=== PATIENT | male | born 1960 | race African-American/Black ===

== ENCOUNTER 2021-12-21 11:04 | Inpatient (IN) | payer BC ==
[2021-12-21 11:53] VITALS: BMI 29.5
[2021-12-21] MEDS ORDERED: BISMUTH SUBSALICYLATE 262 MG/15 ML BTL PO PRN (12:02)
[2021-12-21] MEDS ORDERED: IBUPROFEN 400 MG TABLET (FP) PO PRN (12:02)
[2021-12-21] MEDS ORDERED: ONDANSETRON *ODT* 4 MG TABLET SL PRN (12:02)
[2021-12-21] MEDS ORDERED: MAGNESIUM CITRATE 300 ML BOTTLE PO PRN (12:02)
[2021-12-21] MEDS ORDERED: NICOTINE 10 MG CARTRIDGE (INHALER) IH PRN (12:02)
[2021-12-21] MEDS ORDERED: BENZOCAINE/MENTHOL (CHLORASEPTIC ) LOZENGE MM PRN (12:02)
[2021-12-21] MEDS ORDERED: IBUPROFEN 600 MG TABLET (FP) PO PRN (12:02)
[2021-12-21] MEDS ORDERED: ACETAMINOPHEN 325 MG TABLET (FP) PO PRN ×2 (12:02)
[2021-12-21] MEDS ORDERED: DICYCLOMINE HCL 10 MG CAPSULE PO PRN (12:02)
[2021-12-21] MEDS ORDERED: LOPERAMIDE HCL 2 MG CAPSULE PO PRN (12:02)
[2021-12-21] MEDS ORDERED: MAG HYDROX/AL HYDROX/SIMETH 30 ML UNIT-DOSE CUP PO PRN (12:02)
[2021-12-21] MEDS ORDERED: MAGNESIUM HYDROX 2400MG/30ML ORAL SUSPENSION 30 ML CUP PO PRN (12:02)
[2021-12-21] MEDS: PRENATAL VITAMINS W/ FOLIC ACID TABLET (FP) PO SCH (12:40)
[2021-12-21] MEDS: NICOTINE 14 MG/24 HOURS TOPICAL PATCH TD SCH (12:40)
[2021-12-21] MEDS: hydrOXYzine PAMOATE 25 MG CAPSULE (FP) PO SCH ×3 (13:21→23:02)
[2021-12-21] MEDS: MELATONIN 5 MG TABLETS PO SCH (23:02)
[2021-12-21] MEDS: ATORVASTATIN CA 40 MG TABLET (FP) PO SCH (23:02)
[2021-12-21] MEDS: THIAMINE HCL 100 MG TABLET (FP) PO SCH (23:02)
[2021-12-22] MEDS: hydrOXYzine PAMOATE 25 MG CAPSULE (FP) PO SCH ×5 (06:20→21:40)
[2021-12-22] MEDS ORDERED: chlordiazePOXIDE HCL 25 MG CAPSULE PO PRN (09:34)
[2021-12-22] MEDS: amLODIPine BESYLATE 10 MG TABLET (FP) PO SCH (10:08)
[2021-12-22] MEDS: PRENATAL VITAMINS W/ FOLIC ACID TABLET (FP) PO SCH (10:08)
[2021-12-22] MEDS: METHOCARBAMOL 500 MG TABLET PO PRN (10:09)
[2021-12-22] MEDS: NICOTINE 14 MG/24 HOURS TOPICAL PATCH TD SCH (10:09)
[2021-12-22] MEDS: chlordiazePOXIDE HCL 25 MG CAPSULE PO SCH ×3 (10:12→22:18)
[2021-12-22] MEDS: ATORVASTATIN CA 40 MG TABLET (FP) PO SCH (21:40)
[2021-12-22] MEDS: THIAMINE HCL 100 MG TABLET (FP) PO SCH (21:40)
[2021-12-22] MEDS: MELATONIN 5 MG TABLETS PO SCH (21:40)
[2021-12-23] MEDS: hydrOXYzine PAMOATE 25 MG CAPSULE (FP) PO SCH ×5 (06:04→23:13)
[2021-12-23] MEDS: chlordiazePOXIDE HCL 25 MG CAPSULE PO SCH ×4 (06:04→23:13)
[2021-12-23] MEDS: amLODIPine BESYLATE 10 MG TABLET (FP) PO SCH (10:19)
[2021-12-23] MEDS: PRENATAL VITAMINS W/ FOLIC ACID TABLET (FP) PO SCH (10:19)
[2021-12-23] MEDS: METHOCARBAMOL 500 MG TABLET PO PRN (10:19)
[2021-12-23] MEDS: NICOTINE 14 MG/24 HOURS TOPICAL PATCH TD SCH (10:21)
[2021-12-23 11:51] LABS: HEMATOCRIT 36.6 % (35.4-49); HEMOGLOBIN 12.4 GM/dL (11.7-16.9); MCH 29.4 pg (25.7-33.7); MCHC 33.9 g/dl (32.0-35.9); MEAN CELL VOLUME 86.6 fl (80-96); PLATELET COUNT 250 10^3/uL (134-434); RBC 4.23 M/mm3 (4.00-5.60); RDW 14.6 % (11.9-15.9); WHITE BLOOD COUNT 4.9 K/mm3 (4.0-10.0)
[2021-12-23 13:00] LABS: CALCIUM 8.9 mg/dL (8.5-10.1)
[2021-12-23 13:01] LABS: ALBUMIN 3.7 g/dl (3.4-5.0); BLOOD UREA NITROGEN 14.8 mg/dL (7-18)
[2021-12-23 13:04] LABS: CREATININE 1.1 mg/dL (0.55-1.3)
[2021-12-23 13:05] LABS: TOT PROT 6.8 g/dl (6.4-8.2)
[2021-12-23 13:06] LABS: BILIRUBIN,TOTAL 0.4 mg/dL (0.2-1)
[2021-12-23] MEDS: ATORVASTATIN CA 40 MG TABLET (FP) PO SCH (23:13)
[2021-12-23] MEDS: MELATONIN 5 MG TABLETS PO SCH (23:13)
[2021-12-23] MEDS: THIAMINE HCL 100 MG TABLET (FP) PO SCH (23:14)
[2021-12-24] MEDS: hydrOXYzine PAMOATE 25 MG CAPSULE (FP) PO SCH ×5 (06:08→22:59)
[2021-12-24] MEDS: chlordiazePOXIDE HCL 25 MG CAPSULE PO SCH ×4 (06:08→22:59)
[2021-12-24] MEDS: PRENATAL VITAMINS W/ FOLIC ACID TABLET (FP) PO SCH (10:27)
[2021-12-24] MEDS: amLODIPine BESYLATE 10 MG TABLET (FP) PO SCH (10:28)
[2021-12-24] MEDS: NICOTINE 14 MG/24 HOURS TOPICAL PATCH TD SCH (10:29)
[2021-12-24] MEDS: HYDROCORTISONE 0.5% TOPICAL CREAM 30 GM TUBE TP SCH ×2 (13:26→23:40)
[2021-12-24] MEDS: MELATONIN 5 MG TABLETS PO SCH (22:59)
[2021-12-24] MEDS: THIAMINE HCL 100 MG TABLET (FP) PO SCH (22:59)
[2021-12-24] MEDS: ATORVASTATIN CA 40 MG TABLET (FP) PO SCH (22:59)
[2021-12-25] MEDS ORDERED: chlordiazePOXIDE HCL 10 MG CAPSULE PO PRN
[2021-12-25] MEDS: hydrOXYzine PAMOATE 25 MG CAPSULE (FP) PO SCH ×5 (05:22→21:43)
[2021-12-25] MEDS: chlordiazePOXIDE HCL 10 MG CAPSULE PO SCH ×4 (05:23→22:36)
[2021-12-25] MEDS: amLODIPine BESYLATE 10 MG TABLET (FP) PO SCH (10:13)
[2021-12-25] MEDS: METHOCARBAMOL 500 MG TABLET PO PRN (10:13)
[2021-12-25] MEDS: PRENATAL VITAMINS W/ FOLIC ACID TABLET (FP) PO SCH (10:13)
[2021-12-25] MEDS: NICOTINE 14 MG/24 HOURS TOPICAL PATCH TD SCH (10:16)
[2021-12-25] MEDS: HYDROCORTISONE 0.5% TOPICAL CREAM 30 GM TUBE TP SCH ×2 (10:16→23:03)
[2021-12-25] MEDS: MELATONIN 5 MG TABLETS PO SCH (21:43)
[2021-12-25] MEDS: THIAMINE HCL 100 MG TABLET (FP) PO SCH (21:43)
[2021-12-25] MEDS: ATORVASTATIN CA 40 MG TABLET (FP) PO SCH (21:44)
[2021-12-26] MEDS: chlordiazePOXIDE HCL 10 MG CAPSULE PO SCH ×2 (05:49→17:40)
[2021-12-26] MEDS: hydrOXYzine PAMOATE 25 MG CAPSULE (FP) PO SCH ×5 (05:50→23:13)
[2021-12-26] MEDS: NICOTINE 14 MG/24 HOURS TOPICAL PATCH TD SCH (10:04)
[2021-12-26] MEDS: amLODIPine BESYLATE 10 MG TABLET (FP) PO SCH (10:05)
[2021-12-26] MEDS: METHOCARBAMOL 500 MG TABLET PO PRN (10:05)
[2021-12-26] MEDS: HYDROCORTISONE 0.5% TOPICAL CREAM 30 GM TUBE TP SCH ×2 (10:05→23:11)
[2021-12-26] MEDS: PRENATAL VITAMINS W/ FOLIC ACID TABLET (FP) PO SCH (10:22)
[2021-12-26] MEDS: ATORVASTATIN CA 40 MG TABLET (FP) PO SCH (23:11)
[2021-12-26] MEDS: MELATONIN 5 MG TABLETS PO SCH (23:11)
[2021-12-26] MEDS: THIAMINE HCL 100 MG TABLET (FP) PO SCH (23:13)
[2021-12-27] MEDS ORDERED: chlordiazePOXIDE HCL 10 MG CAPSULE PO ONE (05:00)
[2021-12-27] MEDS: hydrOXYzine PAMOATE 25 MG CAPSULE (FP) PO SCH ×2 (06:24→10:06)
[2021-12-27 09:15] VITALS: BP 153/86; PULSE 66; RESP 18; TEMP 98.1
[2021-12-27] MEDS: amLODIPine BESYLATE 10 MG TABLET (FP) PO SCH (10:04)
[2021-12-27] MEDS: PRENATAL VITAMINS W/ FOLIC ACID TABLET (FP) PO SCH (10:04)
[2021-12-27] MEDS: HYDROCORTISONE 0.5% TOPICAL CREAM 30 GM TUBE TP SCH (10:05)
[2021-12-27] MEDS: NICOTINE 14 MG/24 HOURS TOPICAL PATCH TD SCH (10:05)
== END 2021-12-27 10:51 | disposition home or self-care (01) | DRG 774 ==
LOC: YASAS 11:04 → Y6N 12:17
PROVIDERS: ADMIT Allergy & Immunology; ATTEND Surgery
PROC: HZ2ZZZZ Detoxification Services for Substance Abuse Treatment (ICD-10-PCS; principal; 2021-12-21)
DX: F10.230 Alcohol dependence with withdrawal, uncomplicated (principal); F14.20 Cocaine dependence, uncomplicated; F12.20 Cannabis dependence, uncomplicated; F17.210 Nicotine dependence, cigarettes, uncomplicated; E78.5 Hyperlipidemia, unspecified; I10 Essential (primary) hypertension; R00.1 Bradycardia, unspecified; R01.1 Cardiac murmur, unspecified; Z86.19 Personal history of other infectious and parasitic diseases
CPT/HCPCS: 36415; 80053; 85027; 86593; 86780; 93005; 93010; C9803-CS; U0003; U0005

== ENCOUNTER 2022-10-28 08:30 | Inpatient (IN) | payer BC ==
[2022-10-28 08:55] VITALS: BMI 32.8
[2022-10-28] MEDS ORDERED: BENZONATATE 200 MG CAPSULE PO PRN (09:41)
[2022-10-28] MEDS ORDERED: IBUPROFEN 400 MG TABLET (FP) PO PRN (09:41)
[2022-10-28] MEDS ORDERED: LOPERAMIDE HCL 2 MG CAPSULE PO PRN (09:41)
[2022-10-28] MEDS ORDERED: IBUPROFEN 600 MG TABLET (FP) PO PRN (09:41)
[2022-10-28] MEDS ORDERED: BENZOCAINE/MENTHOL (CHLORASEPTIC ) LOZENGE MM PRN (09:41)
[2022-10-28] MEDS ORDERED: NALOXONE HCL (KLOXXADO) 8 MG SPRAY NS PRN (09:41)
[2022-10-28] MEDS ORDERED: ONDANSETRON *ODT* 4 MG TABLET SL PRN (09:41)
[2022-10-28] MEDS ORDERED: ACETAMINOPHEN 325 MG TABLET (FP) PO PRN (09:41)
[2022-10-28] MEDS ORDERED: hydrOXYzine PAMOATE 25 MG CAPSULE (FP) PO PRN (09:41)
[2022-10-28] MEDS ORDERED: MAG HYDROX/AL HYDROX/SIMETH 30 ML UNIT-DOSE CUP PO PRN (09:41)
[2022-10-28] MEDS ORDERED: NALOXONE HCL 0.4 MG/ML VIAL IM PRN (09:41)
[2022-10-28] MEDS ORDERED: NICOTINE POLACRILEX 2 MG GUM BUC PRN (09:41)
[2022-10-28] MEDS ORDERED: NICOTINE 10 MG CARTRIDGE (INHALER) IH PRN (09:41)
[2022-10-28] MEDS ORDERED: METHOCARBAMOL 500 MG TABLET PO PRN (09:41)
[2022-10-28] MEDS ORDERED: DICYCLOMINE HCL 10 MG CAPSULE PO PRN (09:41)
[2022-10-28] MEDS ORDERED: MAGNESIUM HYDROX 2400MG/30ML ORAL SUSPENSION 30 ML CUP PO PRN (09:41)
[2022-10-28] MEDS ORDERED: BISMUTH SUBSALICYLATE 262 MG/15 ML BTL PO PRN (09:41)
[2022-10-28] MEDS ORDERED: POLYETHYLENE GLYCOL (HEALTHYLAX) 3350 17 GM PACKET PO PRN (09:41)
[2022-10-28] MEDS ORDERED: guaiFENesin 600 MG TABLET.ER (FP) PO PRN (09:41)
[2022-10-28] MEDS ORDERED: LOSARTAN POTASSIUM 50 MG TABLET PO SCH (10:00)
[2022-10-28] MEDS ORDERED: PRENATAL VITAMINS W/ FOLIC ACID TABLET (FP) PO ONE (10:17)
[2022-10-28] MEDS: PRENATAL VITAMINS W/ FOLIC ACID TABLET (FP) PO SCH (10:21)
[2022-10-28] MEDS: LOSARTAN POTASSIUM 50 MG TABLET PO SCH (11:00)
[2022-10-28 14:24] LABS: HEMATOCRIT 37.8 % (35.4-49); HEMOGLOBIN 13.1 GM/dL (11.7-16.9); MCH 29.8 pg (25.7-33.7); MCHC 34.6 g/dl (32.0-35.9); MEAN CELL VOLUME 86.2 fl (80-96); MEAN PLT VOLUME 8.9 fl (7.5-11.1); PLATELET COUNT 271 10^3/uL (134-434); RBC 4.39 M/mm3 (4.00-5.60); RDW 14.4 % (11.9-15.9); WHITE BLOOD COUNT 4.8 K/mm3 (4.0-10.0)
[2022-10-28 14:27] LABS: POTASSIUM 3.4 mmol/L (3.5-5.1)
[2022-10-28 14:29] LABS: CALCIUM 8.8 mg/dL (8.5-10.1)
[2022-10-28 14:30] LABS: ALBUMIN 3.8 g/dl (3.4-5.0); BLOOD UREA NITROGEN 8.9 mg/dL (7-18)
[2022-10-28 14:33] LABS: CREATININE 1.2 mg/dL (0.55-1.3)
[2022-10-28 14:35] LABS: BILIRUBIN,TOTAL 0.7 mg/dL (0.2-1); TOT PROT 7.2 g/dl (6.4-8.2)
[2022-10-28] MEDS ORDERED: cloNIDine HCL 0.1 MG TABLET PO ONE (21:08)
[2022-10-28] MEDS: ATORVASTATIN CA 40 MG TABLET (FP) PO SCH (21:35)
[2022-10-28] MEDS: BACITRACIN 0.9 GM PACKET TP SCH (21:35)
[2022-10-28] MEDS: THIAMINE HCL 100 MG TABLET (FP) PO SCH (21:35)
[2022-10-28] MEDS: MELATONIN 5 MG TABLETS PO SCH (21:35)
[2022-10-29 09:06] VITALS: RESP 18
[2022-10-29] MEDS: BACITRACIN 0.9 GM PACKET TP SCH ×2 (10:11→22:26)
[2022-10-29] MEDS: LOSARTAN POTASSIUM 50 MG TABLET PO SCH (10:11)
[2022-10-29] MEDS: PRENATAL VITAMINS W/ FOLIC ACID TABLET (FP) PO SCH (10:11)
[2022-10-29] MEDS: MELATONIN 5 MG TABLETS PO SCH (22:27)
[2022-10-29] MEDS: THIAMINE HCL 100 MG TABLET (FP) PO SCH (22:27)
[2022-10-29] MEDS: ATORVASTATIN CA 40 MG TABLET (FP) PO SCH (22:27)
[2022-10-30 09:35] VITALS: BP 152/76; PULSE 66; TEMP 98.1
[2022-10-30] MEDS: PRENATAL VITAMINS W/ FOLIC ACID TABLET (FP) PO SCH (10:25)
[2022-10-30] MEDS: LOSARTAN POTASSIUM 50 MG TABLET PO SCH (10:26)
[2022-10-30] MEDS: BACITRACIN 0.9 GM PACKET TP SCH (10:26)
== END 2022-10-30 12:20 | disposition home or self-care (01) | DRG 774 ==
LOC: YASAS 08:30 → Y3N 09:56
PROVIDERS: ADMIT Allergy & Immunology; ATTEND Surgery
PROC: HZ2ZZZZ Detoxification Services for Substance Abuse Treatment (ICD-10-PCS; principal; 2022-10-28)
DX: F10.20 Alcohol dependence, uncomplicated (principal); F14.20 Cocaine dependence, uncomplicated; F17.210 Nicotine dependence, cigarettes, uncomplicated; E78.5 Hyperlipidemia, unspecified; I10 Essential (primary) hypertension
CPT/HCPCS: 36415; 80053; 82140; 85027; 86593; 86780; 87811; C9803-CS; U0003; U0005

== ENCOUNTER 2023-01-03 13:44 | Inpatient (IN) | payer BC ==
[2023-01-03 15:10] VITALS: BMI 31.8
[2023-01-03] MEDS ORDERED: LOPERAMIDE HCL 2 MG CAPSULE PO PRN (18:03)
[2023-01-03] MEDS ORDERED: MAG HYDROX/AL HYDROX/SIMETH 30 ML UNIT-DOSE CUP PO PRN (18:03)
[2023-01-03] MEDS ORDERED: BENZOCAINE/MENTHOL (CHLORASEPTIC ) LOZENGE MM PRN (18:03)
[2023-01-03] MEDS ORDERED: ACETAMINOPHEN 325 MG TABLET (FP) PO PRN (18:03)
[2023-01-03] MEDS ORDERED: IBUPROFEN 400 MG TABLET (FP) PO PRN (18:03)
[2023-01-03] MEDS ORDERED: BENZONATATE 200 MG CAPSULE PO PRN (18:03)
[2023-01-03] MEDS ORDERED: NICOTINE POLACRILEX 2 MG GUM BUC PRN (18:03)
[2023-01-03] MEDS ORDERED: guaiFENesin 600 MG TABLET.ER (FP) PO PRN (18:03)
[2023-01-03] MEDS ORDERED: MAGNESIUM HYDROX 2400MG/30ML ORAL SUSPENSION 30 ML CUP PO PRN (18:03)
[2023-01-03] MEDS ORDERED: NALOXONE HCL 0.4 MG/ML VIAL IM PRN (18:03)
[2023-01-03] MEDS ORDERED: NALOXONE HCL (KLOXXADO) 8 MG SPRAY NS PRN (18:03)
[2023-01-03] MEDS ORDERED: AMMONIUM LACTATE 12% LOTION 225 GM BOTTLE TP PRN (18:03)
[2023-01-03] MEDS ORDERED: POLYETHYLENE GLYCOL (HEALTHYLAX) 3350 17 GM PACKET PO PRN (18:03)
[2023-01-03] MEDS ORDERED: TUBERCULIN PPD 5 TU/0.1ML SYRINGE (IN PATIENT USE ONLY) ID ONE (21:00)
[2023-01-03] MEDS: THIAMINE HCL 100 MG TABLET (FP) PO SCH (21:44)
[2023-01-03] MEDS: MELATONIN 5 MG TABLETS PO SCH (21:44)
[2023-01-04] MEDS: LOSARTAN POTASSIUM 50 MG TABLET PO SCH (09:58)
[2023-01-04] MEDS: PRENATAL VITAMINS W/ FOLIC ACID TABLET (FP) PO SCH (09:58)
[2023-01-04 14:25] LABS: HEMATOCRIT 34.9 % (35.4-49); HEMOGLOBIN 11.9 GM/dL (11.7-16.9); MCH 29.1 pg (25.7-33.7); MCHC 34.1 g/dl (32.0-35.9); MEAN CELL VOLUME 85.4 fl (80-96); PLATELET COUNT 263 10^3/uL (134-434); POTASSIUM 3.9 mmol/L (3.5-5.1); RBC 4.08 M/mm3 (4.00-5.60); RDW 14.3 % (11.9-15.9); WHITE BLOOD COUNT 5.9 K/mm3 (4.0-10.0)
[2023-01-04 14:29] LABS: ALBUMIN 3.2 g/dl (3.4-5.0); CALCIUM 8.3 mg/dL (8.5-10.1)
[2023-01-04 14:30] LABS: BLOOD UREA NITROGEN 17.4 mg/dL (7-18)
[2023-01-04 14:32] LABS: CREATININE 1.5 mg/dL (0.55-1.3)
[2023-01-04 14:34] LABS: BILIRUBIN,TOTAL 0.3 mg/dL (0.2-1); TOT PROT 6.2 g/dl (6.4-8.2)
[2023-01-04 15:52] LABS: EPI CELLS 7 /uL (0-25.1); HYALINE CASTS 0 /uL (0-3.1); PH,URINE 6.5 (5.0-8.0); URINE APPEARANCE CLEAR; URINE BACTERIA 38 /uL (0-1359); URINE BILIRUBIN NEGATIVE (NEGATIVE); URINE COLOR YELLOW; URINE GLUCOSE (UA) NEGATIVE (NEGATIVE); URINE KETONE NEGATIVE (NEGATIVE); URINE LEUK ESTERASE NEGATIVE (NEGATIVE); URINE NITRITE NEGATIVE (NEGATIVE); URINE PROTEIN NEGATIVE (NEGATIVE); URINE RBC 51 /uL (0-23.9); URINE UROBILINOGEN 0.2 mg/dL (0.2-1.0); URINE WBC 20 /uL (0-25.8)
[2023-01-04] MEDS: ATORVASTATIN CA 40 MG TABLET (FP) PO SCH (21:44)
[2023-01-04] MEDS: THIAMINE HCL 100 MG TABLET (FP) PO SCH (21:45)
[2023-01-04] MEDS: MELATONIN 5 MG TABLETS PO SCH (21:45)
[2023-01-05] MEDS: PRENATAL VITAMINS W/ FOLIC ACID TABLET (FP) PO SCH (10:18)
[2023-01-05] MEDS: LOSARTAN POTASSIUM 50 MG TABLET PO SCH (10:18)
[2023-01-05] MEDS: THIAMINE HCL 100 MG TABLET (FP) PO SCH (21:26)
[2023-01-05] MEDS: ATORVASTATIN CA 40 MG TABLET (FP) PO SCH (21:26)
[2023-01-05] MEDS: MELATONIN 5 MG TABLETS PO SCH (21:26)
[2023-01-06] MEDS ORDERED: LOSARTAN POTASSIUM 50 MG TABLET PO ONE (09:18)
[2023-01-06] MEDS: PRENATAL VITAMINS W/ FOLIC ACID TABLET (FP) PO SCH (09:42)
[2023-01-06] MEDS: ATORVASTATIN CA 40 MG TABLET (FP) PO SCH (21:29)
[2023-01-06] MEDS: THIAMINE HCL 100 MG TABLET (FP) PO SCH (21:29)
[2023-01-06] MEDS: MELATONIN 5 MG TABLETS PO SCH (21:30)
[2023-01-07] MEDS: LOSARTAN POTASSIUM 50 MG TABLET PO SCH (06:33)
[2023-01-07] MEDS: PRENATAL VITAMINS W/ FOLIC ACID TABLET (FP) PO SCH (10:05)
[2023-01-07] MEDS: COLLOIDAL OATMEAL 1 BAR EACH TP PRN (12:04)
[2023-01-07] MEDS: IBUPROFEN 600 MG TABLET (FP) PO PRN (21:44)
[2023-01-07] MEDS: ATORVASTATIN CA 40 MG TABLET (FP) PO SCH (21:44)
[2023-01-07] MEDS: THIAMINE HCL 100 MG TABLET (FP) PO SCH (21:44)
[2023-01-07] MEDS: MELATONIN 5 MG TABLETS PO SCH (21:46)
[2023-01-08] MEDS: LOSARTAN POTASSIUM 50 MG TABLET PO SCH (06:22)
[2023-01-08] MEDS: PRENATAL VITAMINS W/ FOLIC ACID TABLET (FP) PO SCH (09:25)
[2023-01-08] MEDS: IBUPROFEN 600 MG TABLET (FP) PO PRN (18:48)
[2023-01-08] MEDS: THIAMINE HCL 100 MG TABLET (FP) PO SCH (21:38)
[2023-01-08] MEDS: ATORVASTATIN CA 40 MG TABLET (FP) PO SCH (21:38)
[2023-01-08] MEDS: MELATONIN 5 MG TABLETS PO SCH (21:39)
[2023-01-09] MEDS: LOSARTAN POTASSIUM 50 MG TABLET PO SCH (06:09)
[2023-01-09] MEDS: PRENATAL VITAMINS W/ FOLIC ACID TABLET (FP) PO SCH (10:04)
[2023-01-09] MEDS ORDERED: ATORVASTATIN CA 20 MG TABLET (FP) ONE (18:47)
[2023-01-09] MEDS: IBUPROFEN 600 MG TABLET (FP) PO PRN (19:39)
[2023-01-09] MEDS: ATORVASTATIN CA 40 MG TABLET (FP) PO SCH (21:02)
[2023-01-09] MEDS: THIAMINE HCL 100 MG TABLET (FP) PO SCH (21:02)
[2023-01-09] MEDS: MELATONIN 5 MG TABLETS PO SCH (21:03)
[2023-01-10] MEDS: hydrOXYzine PAMOATE 25 MG CAPSULE (FP) PO PRN (06:26)
[2023-01-10] MEDS: LOSARTAN POTASSIUM 50 MG TABLET PO SCH (06:26)
[2023-01-10] MEDS: PRENATAL VITAMINS W/ FOLIC ACID TABLET (FP) PO SCH (09:30)
[2023-01-10] MEDS: COLLOIDAL OATMEAL 1 BAR EACH TP PRN (12:14)
[2023-01-10] MEDS: amLODIPine BESYLATE 2.5 MG TABLET (FP) PO SCH (12:14)
[2023-01-10] MEDS: CLINDAMYCIN PHOSPHATE 1% TOPICAL GEL 30 GM TUBE TP SCH ×2 (14:00→21:40)
[2023-01-10] MEDS: IBUPROFEN 600 MG TABLET (FP) PO PRN (17:17)
[2023-01-10] MEDS: ATORVASTATIN CA 40 MG TABLET (FP) PO SCH (21:40)
[2023-01-10] MEDS: THIAMINE HCL 100 MG TABLET (FP) PO SCH (21:40)
[2023-01-10] MEDS: MELATONIN 5 MG TABLETS PO SCH (21:41)
[2023-01-11] MEDS: LOSARTAN POTASSIUM 50 MG TABLET PO SCH (06:54)
[2023-01-11] MEDS: PRENATAL VITAMINS W/ FOLIC ACID TABLET (FP) PO SCH (09:44)
[2023-01-11] MEDS: amLODIPine BESYLATE 2.5 MG TABLET (FP) PO SCH (09:45)
[2023-01-11] MEDS: CLINDAMYCIN PHOSPHATE 1% TOPICAL GEL 30 GM TUBE TP SCH ×2 (09:45→21:48)
[2023-01-11] MEDS: COLLOIDAL OATMEAL 1 BAR EACH TP PRN (09:45)
[2023-01-11] MEDS: ATORVASTATIN CA 40 MG TABLET (FP) PO SCH (21:47)
[2023-01-11] MEDS: THIAMINE HCL 100 MG TABLET (FP) PO SCH (21:47)
[2023-01-11] MEDS: MELATONIN 5 MG TABLETS PO SCH (21:47)
[2023-01-11] MEDS: IBUPROFEN 600 MG TABLET (FP) PO PRN (21:48)
[2023-01-12] MEDS: LOSARTAN POTASSIUM 50 MG TABLET PO SCH (06:29)
[2023-01-12] MEDS ORDERED: amLODIPine BESYLATE 5 MG TABLET (FP) PO SCH (10:00)
[2023-01-12] MEDS: PRENATAL VITAMINS W/ FOLIC ACID TABLET (FP) PO SCH (10:02)
[2023-01-12] MEDS: CLINDAMYCIN PHOSPHATE 1% TOPICAL GEL 30 GM TUBE TP SCH ×2 (10:02→21:06)
[2023-01-12] MEDS: ATORVASTATIN CA 40 MG TABLET (FP) PO SCH (21:06)
[2023-01-12] MEDS: THIAMINE HCL 100 MG TABLET (FP) PO SCH (21:06)
[2023-01-12] MEDS: MELATONIN 5 MG TABLETS PO SCH (21:06)
[2023-01-12] MEDS: hydrOXYzine PAMOATE 25 MG CAPSULE (FP) PO PRN (21:44)
[2023-01-13] MEDS: LOSARTAN POTASSIUM 50 MG TABLET PO SCH (06:51)
[2023-01-13] MEDS: CLINDAMYCIN PHOSPHATE 1% TOPICAL GEL 30 GM TUBE TP SCH ×2 (09:55→21:32)
[2023-01-13] MEDS: PRENATAL VITAMINS W/ FOLIC ACID TABLET (FP) PO SCH (09:55)
[2023-01-13] MEDS ORDERED: amLODIPine BESYLATE 2.5 MG TABLET (FP) PO SCH (10:00)
[2023-01-13] MEDS: THIAMINE HCL 100 MG TABLET (FP) PO SCH (21:32)
[2023-01-13] MEDS: MELATONIN 5 MG TABLETS PO SCH (21:32)
[2023-01-13] MEDS: ATORVASTATIN CA 40 MG TABLET (FP) PO SCH (21:33)
[2023-01-13] MEDS: hydrOXYzine PAMOATE 25 MG CAPSULE (FP) PO PRN (21:33)
[2023-01-14] MEDS: LOSARTAN POTASSIUM 50 MG TABLET PO SCH (06:46)
[2023-01-14 08:04] VITALS: BP 151/78; PULSE 59; RESP 17; TEMP 96.9
[2023-01-14] MEDS: PRENATAL VITAMINS W/ FOLIC ACID TABLET (FP) PO SCH (09:30)
[2023-01-14] MEDS: CLINDAMYCIN PHOSPHATE 1% TOPICAL GEL 30 GM TUBE TP SCH (09:30)
[2023-01-14] MEDS ORDERED: amLODIPine BESYLATE 10 MG TABLET (FP) PO SCH (10:00)
== END 2023-01-14 09:42 | disposition home or self-care (01) | DRG 772 ==
LOC: YASAS 13:44 → Y3W 18:27
PROVIDERS: ADMIT Allergy & Immunology; ATTEND Psychiatry & Neurology Pain Medicine
PROC: HZ42ZZZ Group Counseling for Substance Abuse Treatment, Cognitive-Behavioral (ICD-10-PCS; principal; 2023-01-03)
DX: F10.20 Alcohol dependence, uncomplicated (principal); F14.20 Cocaine dependence, uncomplicated; F17.210 Nicotine dependence, cigarettes, uncomplicated; E78.2 Mixed hyperlipidemia; I10 Essential (primary) hypertension; L73.2 Hidradenitis suppurativa; Z86.19 Personal history of other infectious and parasitic diseases
CPT/HCPCS: 36415; 80053; 81003; 85027; 86593; 86780; 87635

== ENCOUNTER 2023-03-09 12:47 | Inpatient (IN) | payer BC ==
[2023-03-09 15:33] VITALS: BMI 31.6
[2023-03-09] MEDS ORDERED: ACETAMINOPHEN 325 MG TABLET (FP) PO PRN (21:01)
[2023-03-09] MEDS ORDERED: POLYETHYLENE GLYCOL (HEALTHYLAX) 3350 17 GM PACKET PO PRN (21:01)
[2023-03-09] MEDS ORDERED: MAGNESIUM HYDROX 2400MG/30ML ORAL SUSPENSION 30 ML CUP PO PRN (21:01)
[2023-03-09] MEDS ORDERED: LOPERAMIDE HCL 2 MG CAPSULE PO PRN (21:01)
[2023-03-09] MEDS ORDERED: guaiFENesin 600 MG TABLET.ER (FP) PO PRN (21:01)
[2023-03-09] MEDS ORDERED: NALOXONE HCL 0.4 MG/ML VIAL IM PRN (21:01)
[2023-03-09] MEDS ORDERED: BENZONATATE 200 MG CAPSULE PO PRN (21:01)
[2023-03-09] MEDS ORDERED: MAG HYDROX/AL HYDROX/SIMETH 30 ML UNIT-DOSE CUP PO PRN (21:01)
[2023-03-09] MEDS ORDERED: NALOXONE HCL (KLOXXADO) 8 MG SPRAY NS PRN (21:01)
[2023-03-09] MEDS ORDERED: NICOTINE POLACRILEX 2 MG GUM BUC PRN (21:03)
[2023-03-09] MEDS ORDERED: LISINOPRIL 10 MG TABLET PO ONE (21:04)
[2023-03-09] MEDS: THIAMINE HCL 100 MG TABLET (FP) PO SCH (21:54)
[2023-03-09] MEDS: ATORVASTATIN CA 40 MG TABLET (FP) PO SCH (21:54)
[2023-03-09] MEDS: MELATONIN 5 MG TABLETS PO SCH (21:54)
[2023-03-09] MEDS: amLODIPine BESYLATE 2.5 MG TABLET (FP) PO SCH (21:54)
[2023-03-10] MEDS: PRENATAL VITAMINS W/ FOLIC ACID TABLET (FP) PO SCH (10:31)
[2023-03-10] MEDS: amLODIPine BESYLATE 2.5 MG TABLET (FP) PO SCH (10:31)
[2023-03-10 11:33] LABS: URINE APPEARANCE CLEAR; URINE BILIRUBIN NEGATIVE (NEGATIVE); URINE COLOR YELLOW; URINE GLUCOSE (UA) NEGATIVE (NEGATIVE); URINE KETONE NEGATIVE (NEGATIVE); URINE LEUK ESTERASE NEGATIVE (NEGATIVE); URINE NITRITE NEGATIVE (NEGATIVE); URINE PROTEIN NEGATIVE (NEGATIVE); URINE UROBILINOGEN 0.2 mg/dL (0.2-1.0)
[2023-03-10] MEDS: PNEUMOC 20-VAL CONJ-DIP CRM/PF 0.5 ML SYRINGE IM ONE ×2 (12:23→13:18)
[2023-03-10] MEDS: THIAMINE HCL 100 MG TABLET (FP) PO SCH (21:18)
[2023-03-10] MEDS: ATORVASTATIN CA 40 MG TABLET (FP) PO SCH (21:18)
[2023-03-10] MEDS: MELATONIN 5 MG TABLETS PO SCH (21:19)
[2023-03-11] MEDS: PRENATAL VITAMINS W/ FOLIC ACID TABLET (FP) PO SCH (09:57)
[2023-03-11] MEDS: COLLOIDAL OATMEAL 1 BAR EACH TP PRN (09:57)
[2023-03-11] MEDS: amLODIPine BESYLATE 2.5 MG TABLET (FP) PO SCH (09:57)
[2023-03-11] MEDS ORDERED: FLU VACCINE (FLULAVAL) PF 60 MCG/0.5 ML SYRINGE 2023-2024 IM ONE (14:16)
[2023-03-11] MEDS ORDERED: PNEUMOCOCCAL 23 VACCINE 0.5 ML VIAL IM ONE (14:56)
[2023-03-11] MEDS ORDERED: PNEUMOC 20-VAL CONJ-DIP CRM/PF 0.5 ML SYRINGE IM ONE (16:00)
[2023-03-11] MEDS: THIAMINE HCL 100 MG TABLET (FP) PO SCH (21:34)
[2023-03-11] MEDS: MELATONIN 5 MG TABLETS PO SCH (21:35)
[2023-03-11] MEDS: ATORVASTATIN CA 40 MG TABLET (FP) PO SCH (21:35)
[2023-03-12] MEDS: COLLOIDAL OATMEAL 1 BAR EACH TP PRN (07:02)
[2023-03-12] MEDS: PRENATAL VITAMINS W/ FOLIC ACID TABLET (FP) PO SCH (10:05)
[2023-03-12] MEDS: amLODIPine BESYLATE 2.5 MG TABLET (FP) PO SCH (10:05)
[2023-03-12] MEDS: THIAMINE HCL 100 MG TABLET (FP) PO SCH (21:08)
[2023-03-12] MEDS: MELATONIN 5 MG TABLETS PO SCH (21:09)
[2023-03-12] MEDS: ATORVASTATIN CA 40 MG TABLET (FP) PO SCH (21:09)
[2023-03-13] MEDS: amLODIPine BESYLATE 2.5 MG TABLET (FP) PO SCH (09:55)
[2023-03-13] MEDS: PRENATAL VITAMINS W/ FOLIC ACID TABLET (FP) PO SCH (09:55)
[2023-03-13] MEDS: MELATONIN 5 MG TABLETS PO SCH (21:21)
[2023-03-13] MEDS: ATORVASTATIN CA 40 MG TABLET (FP) PO SCH (21:21)
[2023-03-13] MEDS: THIAMINE HCL 100 MG TABLET (FP) PO SCH (21:21)
[2023-03-14] MEDS: hydrOXYzine PAMOATE 25 MG CAPSULE (FP) PO PRN (06:30)
[2023-03-14] MEDS: amLODIPine BESYLATE 2.5 MG TABLET (FP) PO SCH (10:01)
[2023-03-14] MEDS: PRENATAL VITAMINS W/ FOLIC ACID TABLET (FP) PO SCH (10:01)
[2023-03-14] MEDS: LISINOPRIL 20 MG TABLET PO SCH (14:09)
[2023-03-14] MEDS: LOSARTAN POTASSIUM 50 MG TABLET PO SCH (14:10)
[2023-03-14] MEDS: THIAMINE HCL 100 MG TABLET (FP) PO SCH (21:18)
[2023-03-14] MEDS: ATORVASTATIN CA 40 MG TABLET (FP) PO SCH (21:18)
[2023-03-14] MEDS: MELATONIN 5 MG TABLETS PO SCH (21:18)
[2023-03-15] MEDS: hydrOXYzine PAMOATE 25 MG CAPSULE (FP) PO PRN (06:25)
[2023-03-15] MEDS: P-EPHED 60MG/TRIPROLIDI 2.5MG TABLET PO PRN (07:02)
[2023-03-15] MEDS ORDERED: amLODIPine BESYLATE 2.5 MG TABLET (FP) PO SCH (09:04)
[2023-03-15] MEDS ORDERED: guaiFENesin 200 MG/10 ML 10 ML UNIT-DOSE CUPS PO PRN (09:04)
[2023-03-15] MEDS: PRENATAL VITAMINS W/ FOLIC ACID TABLET (FP) PO SCH (09:54)
[2023-03-15] MEDS: LISINOPRIL 20 MG TABLET PO SCH (09:54)
[2023-03-15] MEDS: LOSARTAN POTASSIUM 50 MG TABLET PO SCH (09:54)
[2023-03-15] MEDS: amLODIPine BESYLATE 5 MG TABLET (FP) PO SCH (09:56)
[2023-03-15] MEDS: COLLOIDAL OATMEAL 1 BAR EACH TP PRN (11:45)
[2023-03-15] MEDS: IBUPROFEN 600 MG TABLET (FP) PO PRN (17:18)
[2023-03-15] MEDS: MELATONIN 5 MG TABLETS PO SCH (21:32)
[2023-03-15] MEDS: THIAMINE HCL 100 MG TABLET (FP) PO SCH (21:32)
[2023-03-15] MEDS: ATORVASTATIN CA 40 MG TABLET (FP) PO SCH (21:32)
[2023-03-16] MEDS: IBUPROFEN 400 MG TABLET (FP) PO PRN (00:40)
[2023-03-16] MEDS: amLODIPine BESYLATE 5 MG TABLET (FP) PO SCH (09:39)
[2023-03-16] MEDS: PRENATAL VITAMINS W/ FOLIC ACID TABLET (FP) PO SCH (09:39)
[2023-03-16] MEDS: LOSARTAN POTASSIUM 50 MG TABLET PO SCH (09:39)
[2023-03-16] MEDS: LISINOPRIL 20 MG TABLET PO SCH (09:39)
[2023-03-16] MEDS: BENZOCAINE/MENTHOL (CHLORASEPTIC ) LOZENGE MM PRN ×3 (09:39→16:18)
[2023-03-16] MEDS: P-EPHED 60MG/TRIPROLIDI 2.5MG TABLET PO PRN (09:39)
[2023-03-16] MEDS: BENZONATATE 200 MG CAPSULE PO PRN (09:39)
[2023-03-16] MEDS: IBUPROFEN 600 MG TABLET (FP) PO PRN ×2 (16:18→21:21)
[2023-03-16] MEDS: MELATONIN 5 MG TABLETS PO SCH (21:21)
[2023-03-16] MEDS: THIAMINE HCL 100 MG TABLET (FP) PO SCH (21:21)
[2023-03-16] MEDS: ATORVASTATIN CA 40 MG TABLET (FP) PO SCH (21:21)
[2023-03-17] MEDS: PRENATAL VITAMINS W/ FOLIC ACID TABLET (FP) PO SCH (09:39)
[2023-03-17] MEDS: LOSARTAN POTASSIUM 50 MG TABLET PO SCH (09:39)
[2023-03-17] MEDS: BENZONATATE 200 MG CAPSULE PO PRN (09:40)
[2023-03-17] MEDS: LISINOPRIL 20 MG TABLET PO SCH (09:40)
[2023-03-17] MEDS: amLODIPine BESYLATE 5 MG TABLET (FP) PO SCH (09:40)
[2023-03-17] MEDS: IBUPROFEN 600 MG TABLET (FP) PO PRN ×2 (09:40→21:41)
[2023-03-17] MEDS: BENZOCAINE/MENTHOL (CHLORASEPTIC ) LOZENGE MM PRN ×2 (09:40→21:41)
[2023-03-17] MEDS: THIAMINE HCL 100 MG TABLET (FP) PO SCH (21:40)
[2023-03-17] MEDS: MELATONIN 5 MG TABLETS PO SCH (21:40)
[2023-03-17] MEDS: ATORVASTATIN CA 40 MG TABLET (FP) PO SCH (21:40)
[2023-03-18] MEDS: LOSARTAN POTASSIUM 50 MG TABLET PO SCH (09:44)
[2023-03-18] MEDS: PRENATAL VITAMINS W/ FOLIC ACID TABLET (FP) PO SCH (09:46)
[2023-03-18] MEDS: amLODIPine BESYLATE 5 MG TABLET (FP) PO SCH (09:46)
[2023-03-18] MEDS: LISINOPRIL 20 MG TABLET PO SCH (09:46)
[2023-03-18] MEDS: BENZONATATE 200 MG CAPSULE PO PRN (09:46)
[2023-03-18] MEDS: BENZOCAINE/MENTHOL (CHLORASEPTIC ) LOZENGE MM PRN ×2 (09:47→21:27)
[2023-03-18] MEDS: IBUPROFEN 600 MG TABLET (FP) PO PRN ×2 (09:47→21:28)
[2023-03-18] MEDS: COLLOIDAL OATMEAL 1 BAR EACH TP PRN (13:58)
[2023-03-18] MEDS: MELATONIN 5 MG TABLETS PO SCH (21:27)
[2023-03-18] MEDS: THIAMINE HCL 100 MG TABLET (FP) PO SCH (21:27)
[2023-03-18] MEDS: ATORVASTATIN CA 40 MG TABLET (FP) PO SCH (21:27)
[2023-03-19] MEDS: LISINOPRIL 20 MG TABLET PO SCH (09:47)
[2023-03-19] MEDS: PRENATAL VITAMINS W/ FOLIC ACID TABLET (FP) PO SCH (09:47)
[2023-03-19] MEDS: LOSARTAN POTASSIUM 50 MG TABLET PO SCH (09:48)
[2023-03-19] MEDS: amLODIPine BESYLATE 5 MG TABLET (FP) PO SCH (09:48)
[2023-03-19] MEDS: THIAMINE HCL 100 MG TABLET (FP) PO SCH (21:17)
[2023-03-19] MEDS: ATORVASTATIN CA 40 MG TABLET (FP) PO SCH (21:17)
[2023-03-19] MEDS: MELATONIN 5 MG TABLETS PO SCH (21:17)
[2023-03-20] MEDS: amLODIPine BESYLATE 5 MG TABLET (FP) PO SCH (09:34)
[2023-03-20] MEDS: PRENATAL VITAMINS W/ FOLIC ACID TABLET (FP) PO SCH (09:34)
[2023-03-20] MEDS: LISINOPRIL 20 MG TABLET PO SCH (09:35)
[2023-03-20] MEDS: LOSARTAN POTASSIUM 50 MG TABLET PO SCH (09:35)
[2023-03-20] MEDS: ATORVASTATIN CA 40 MG TABLET (FP) PO SCH (21:22)
[2023-03-20] MEDS: THIAMINE HCL 100 MG TABLET (FP) PO SCH (21:22)
[2023-03-20] MEDS: MELATONIN 5 MG TABLETS PO SCH (21:22)
[2023-03-21] MEDS: LOSARTAN POTASSIUM 50 MG TABLET PO SCH (09:55)
[2023-03-21] MEDS: amLODIPine BESYLATE 5 MG TABLET (FP) PO SCH (09:56)
[2023-03-21] MEDS: PRENATAL VITAMINS W/ FOLIC ACID TABLET (FP) PO SCH (09:57)
[2023-03-21] MEDS: LISINOPRIL 20 MG TABLET PO SCH (09:58)
[2023-03-21] MEDS: THIAMINE HCL 100 MG TABLET (FP) PO SCH (21:28)
[2023-03-21] MEDS: MELATONIN 5 MG TABLETS PO SCH (21:29)
[2023-03-21] MEDS: ATORVASTATIN CA 40 MG TABLET (FP) PO SCH (21:29)
[2023-03-21] MEDS: IBUPROFEN 400 MG TABLET (FP) PO PRN (21:29)
[2023-03-22] MEDS: LOSARTAN POTASSIUM 50 MG TABLET PO SCH (09:35)
[2023-03-22] MEDS: PRENATAL VITAMINS W/ FOLIC ACID TABLET (FP) PO SCH (09:35)
[2023-03-22] MEDS: LISINOPRIL 20 MG TABLET PO SCH (09:36)
[2023-03-22] MEDS: amLODIPine BESYLATE 5 MG TABLET (FP) PO SCH (09:36)
[2023-03-22] MEDS: THIAMINE HCL 100 MG TABLET (FP) PO SCH (21:07)
[2023-03-22] MEDS: MELATONIN 5 MG TABLETS PO SCH (21:08)
[2023-03-22] MEDS: ATORVASTATIN CA 40 MG TABLET (FP) PO SCH (21:08)
[2023-03-23] MEDS: PRENATAL VITAMINS W/ FOLIC ACID TABLET (FP) PO SCH (10:31)
[2023-03-23] MEDS: LOSARTAN POTASSIUM 50 MG TABLET PO SCH (10:32)
[2023-03-23] MEDS: amLODIPine BESYLATE 5 MG TABLET (FP) PO SCH (10:32)
[2023-03-23] MEDS: LISINOPRIL 20 MG TABLET PO SCH (10:32)
[2023-03-23] MEDS: COLLOIDAL OATMEAL 1 BAR EACH TP PRN (11:11)
[2023-03-23] MEDS: MELATONIN 5 MG TABLETS PO SCH (21:20)
[2023-03-23] MEDS: THIAMINE HCL 100 MG TABLET (FP) PO SCH (21:20)
[2023-03-23] MEDS: ATORVASTATIN CA 40 MG TABLET (FP) PO SCH (21:20)
[2023-03-24] MEDS: LOSARTAN POTASSIUM 50 MG TABLET PO SCH (10:28)
[2023-03-24] MEDS: amLODIPine BESYLATE 5 MG TABLET (FP) PO SCH (10:28)
[2023-03-24] MEDS: PRENATAL VITAMINS W/ FOLIC ACID TABLET (FP) PO SCH (10:29)
[2023-03-24] MEDS: LISINOPRIL 20 MG TABLET PO SCH (10:29)
[2023-03-24] MEDS: ATORVASTATIN CA 40 MG TABLET (FP) PO SCH (21:21)
[2023-03-24] MEDS: MELATONIN 5 MG TABLETS PO SCH (21:21)
[2023-03-24] MEDS: THIAMINE HCL 100 MG TABLET (FP) PO SCH (21:21)
[2023-03-25] MEDS: LOSARTAN POTASSIUM 50 MG TABLET PO SCH (10:51)
[2023-03-25] MEDS: LISINOPRIL 20 MG TABLET PO SCH (10:51)
[2023-03-25] MEDS: PRENATAL VITAMINS W/ FOLIC ACID TABLET (FP) PO SCH (10:51)
[2023-03-25] MEDS: amLODIPine BESYLATE 5 MG TABLET (FP) PO SCH (10:51)
[2023-03-25] MEDS: THIAMINE HCL 100 MG TABLET (FP) PO SCH (21:26)
[2023-03-25] MEDS: ATORVASTATIN CA 40 MG TABLET (FP) PO SCH (21:26)
[2023-03-25] MEDS: MELATONIN 5 MG TABLETS PO SCH (21:28)
[2023-03-26] MEDS: PRENATAL VITAMINS W/ FOLIC ACID TABLET (FP) PO SCH (09:14)
[2023-03-26] MEDS: LISINOPRIL 20 MG TABLET PO SCH (09:14)
[2023-03-26] MEDS: LOSARTAN POTASSIUM 50 MG TABLET PO SCH (09:14)
[2023-03-26] MEDS: amLODIPine BESYLATE 5 MG TABLET (FP) PO SCH (09:14)
[2023-03-26] MEDS: ATORVASTATIN CA 40 MG TABLET (FP) PO SCH (21:38)
[2023-03-26] MEDS: THIAMINE HCL 100 MG TABLET (FP) PO SCH (21:38)
[2023-03-26] MEDS: MELATONIN 5 MG TABLETS PO SCH (21:39)
[2023-03-27] MEDS: PRENATAL VITAMINS W/ FOLIC ACID TABLET (FP) PO SCH (09:42)
[2023-03-27] MEDS: LISINOPRIL 20 MG TABLET PO SCH (09:42)
[2023-03-27] MEDS: LOSARTAN POTASSIUM 50 MG TABLET PO SCH (09:43)
[2023-03-27] MEDS: amLODIPine BESYLATE 5 MG TABLET (FP) PO SCH (09:43)
[2023-03-27] MEDS: THIAMINE HCL 100 MG TABLET (FP) PO SCH (21:39)
[2023-03-27] MEDS: ATORVASTATIN CA 40 MG TABLET (FP) PO SCH (21:39)
[2023-03-27] MEDS: MELATONIN 5 MG TABLETS PO SCH (21:40)
[2023-03-28] MEDS: amLODIPine BESYLATE 5 MG TABLET (FP) PO SCH (09:40)
[2023-03-28] MEDS: PRENATAL VITAMINS W/ FOLIC ACID TABLET (FP) PO SCH (09:40)
[2023-03-28] MEDS: LISINOPRIL 20 MG TABLET PO SCH (09:40)
[2023-03-28] MEDS: LOSARTAN POTASSIUM 50 MG TABLET PO SCH (09:40)
[2023-03-28] MEDS: ATORVASTATIN CA 40 MG TABLET (FP) PO SCH (21:12)
[2023-03-28] MEDS: MELATONIN 5 MG TABLETS PO SCH (21:12)
[2023-03-28] MEDS: THIAMINE HCL 100 MG TABLET (FP) PO SCH (21:12)
[2023-03-29 07:23] VITALS: BP 152/87; PULSE 62; RESP 18; TEMP 97.3
[2023-03-29] MEDS: LOSARTAN POTASSIUM 50 MG TABLET PO SCH (09:10)
[2023-03-29] MEDS: PRENATAL VITAMINS W/ FOLIC ACID TABLET (FP) PO SCH (09:10)
[2023-03-29] MEDS: LISINOPRIL 20 MG TABLET PO SCH (09:11)
[2023-03-29] MEDS: amLODIPine BESYLATE 5 MG TABLET (FP) PO SCH (09:12)
== END 2023-03-29 09:16 | disposition home or self-care (01) | DRG 772 ==
LOC: YASAS 12:47 → Y3W 21:10
PROVIDERS: ADMIT Allergy & Immunology; ATTEND Psychiatry & Neurology Pain Medicine
PROC: HZ42ZZZ Group Counseling for Substance Abuse Treatment, Cognitive-Behavioral (ICD-10-PCS; principal; 2023-03-09)
DX: F14.20 Cocaine dependence, uncomplicated (principal); F10.20 Alcohol dependence, uncomplicated; F12.20 Cannabis dependence, uncomplicated; F17.210 Nicotine dependence, cigarettes, uncomplicated; E78.5 Hyperlipidemia, unspecified; I10 Essential (primary) hypertension; Z20.822 Contact with and (suspected) exposure to COVID-19; Z86.19 Personal history of other infectious and parasitic diseases
CPT/HCPCS: 81003; 87635; 90677; 90686; G0008

== ENCOUNTER 2023-09-07 20:29 | Inpatient (IN) | payer BC ==
[2023-09-07 21:16] VITALS: BMI 35.4
[2023-09-07] MEDS ORDERED: POLYETHYLENE GLYCOL (HEALTHYLAX) 3350 17 GM PACKET PO PRN (22:03)
[2023-09-07] MEDS ORDERED: LOPERAMIDE HCL 2 MG CAPSULE PO PRN (22:03)
[2023-09-07] MEDS ORDERED: ACETAMINOPHEN 325 MG TABLET (FP) PO PRN (22:03)
[2023-09-07] MEDS ORDERED: MAG HYDROX/AL HYDROX/SIMETH 30 ML UNIT-DOSE CUP PO PRN (22:03)
[2023-09-07] MEDS ORDERED: NICOTINE POLACRILEX 2 MG GUM BUC PRN (22:03)
[2023-09-07] MEDS ORDERED: BENZONATATE 200 MG CAPSULE PO PRN (22:03)
[2023-09-07] MEDS ORDERED: BENZOCAINE/MENTHOL (CHLORASEPTIC ) LOZENGE MM PRN (22:03)
[2023-09-07] MEDS ORDERED: BISMUTH SUBSALICYLATE 524 MG/30 ML PO PRN (22:03)
[2023-09-07] MEDS ORDERED: IBUPROFEN 400 MG TABLET (FP) PO PRN (22:03)
[2023-09-07] MEDS ORDERED: NICOTINE POLACRILEX 2 MG LOZENGE BC PRN (22:03)
[2023-09-07] MEDS ORDERED: guaiFENesin 600 MG TABLET.ER (FP) PO PRN (22:03)
[2023-09-07] MEDS ORDERED: DICYCLOMINE HCL 10 MG CAPSULE PO PRN (22:03)
[2023-09-08] MEDS: ATORVASTATIN CA 40 MG TABLET (FP) PO SCH (00:54)
[2023-09-08] MEDS: hydrOXYzine PAMOATE 25 MG CAPSULE (FP) PO PRN (00:54)
[2023-09-08] MEDS: METHOCARBAMOL 500 MG TABLET PO PRN (00:54)
[2023-09-08] MEDS ORDERED: chlordiazePOXIDE HCL 25 MG CAPSULE PO PRN (10:12)
[2023-09-08] MEDS: ASPIRIN 325 MG TABLET PO SCH (10:55)
[2023-09-08] MEDS: PRENATAL VITAMINS W/ FOLIC ACID TABLET (FP) PO SCH (10:55)
[2023-09-08] MEDS: amLODIPine BESYLATE 5 MG TABLET (FP) PO SCH (10:55)
[2023-09-08] MEDS: chlordiazePOXIDE HCL 25 MG CAPSULE PO SCH (11:22)
[2023-09-08 11:44] LABS: HEMATOCRIT 36.8 % (35.4-49); HEMOGLOBIN 12.3 GM/dL (11.7-16.9); MCH 29.3 pg (25.7-33.7); MCHC 33.4 g/dl (32.0-35.9); MEAN CELL VOLUME 87.5 fl (80-96); MEAN PLT VOLUME 8.2 fl (7.5-11.1); PLATELET COUNT 300 10^3/uL (134-434); RBC 4.21 M/mm3 (4.00-5.60); RDW 14.7 % (11.9-15.9); WHITE BLOOD COUNT 7.3 K/mm3 (4.0-10.0)
[2023-09-08 11:46] LABS: POTASSIUM 3.7 mmol/L (3.5-5.1)
[2023-09-08 11:48] LABS: CALCIUM 8.6 mg/dL (8.5-10.1)
[2023-09-08 11:49] LABS: ALBUMIN 3.4 g/dl (3.4-5.0); BLOOD UREA NITROGEN 22.8 mg/dL (7-18)
[2023-09-08 11:53] LABS: BILIRUBIN,TOTAL 0.4 mg/dL (0.2-1); CREATININE 1.4 mg/dL (0.55-1.3)
[2023-09-08 11:55] LABS: TOT PROT 6.5 g/dl (6.4-8.2)
[2023-09-08] MEDS: LOSARTAN POTASSIUM 50 MG TABLET PO SCH (15:12)
[2023-09-08] MEDS: THIAMINE HCL 100 MG TABLET (FP) PO SCH (22:04)
[2023-09-08] MEDS: MELATONIN 5 MG TABLETS PO SCH (22:07)
[2023-09-09] MEDS: ONDANSETRON *ODT* 4 MG TABLET SL PRN (09:53)
[2023-09-09] MEDS: ASPIRIN 81 MG CHEWABLE TABLETS PO SCH (10:56)
[2023-09-10] MEDS: chlordiazePOXIDE HCL 25 MG CAPSULE PO SCH (05:55)
[2023-09-10] MEDS: IBUPROFEN 600 MG TABLET (FP) PO PRN (13:33)
[2023-09-11] MEDS ORDERED: chlordiazePOXIDE HCL 10 MG CAPSULE PO PRN
[2023-09-11] MEDS: chlordiazePOXIDE HCL 10 MG CAPSULE PO SCH (06:00)
[2023-09-11] MEDS: LISINOPRIL 20 MG TABLET PO SCH (13:27)
[2023-09-11] MEDS: MAGNESIUM HYDROX 2400MG/30ML ORAL SUSPENSION 30 ML CUP PO PRN (21:56)
[2023-09-12] MEDS: chlordiazePOXIDE HCL 10 MG CAPSULE PO SCH (05:59)
[2023-09-13] MEDS: chlordiazePOXIDE HCL 10 MG CAPSULE PO ONE (06:00)
[2023-09-13 09:04] VITALS: BP 160/87; PULSE 78; RESP 16; TEMP 97.7
== END 2023-09-13 09:49 | disposition home or self-care (01) | DRG 774 ==
LOC: YASAS 20:29 → Y3N 22:10
PROVIDERS: ADMIT Allergy & Immunology; ATTEND Surgery
PROC: HZ2ZZZZ Detoxification Services for Substance Abuse Treatment (ICD-10-PCS; principal; 2023-09-07)
DX: F10.230 Alcohol dependence with withdrawal, uncomplicated (principal); F14.20 Cocaine dependence, uncomplicated; F17.210 Nicotine dependence, cigarettes, uncomplicated; E78.5 Hyperlipidemia, unspecified; I10 Essential (primary) hypertension; N28.9 Disorder of kidney and ureter, unspecified; R76.8 Other specified abnormal immunological findings in serum; Z86.19 Personal history of other infectious and parasitic diseases
CPT/HCPCS: 36415; 80053; 80305; 80307; 85027; 86593; 86780; 93005; 93010; Q0162

== ENCOUNTER 2023-10-04 13:23 | Inpatient (IN) | payer BC ==
[2023-10-04 15:10] VITALS: BMI 31.3
[2023-10-04] MEDS ORDERED: BENZONATATE 200 MG CAPSULE PO PRN (16:39)
[2023-10-04] MEDS ORDERED: NALOXONE HCL 0.4 MG/ML VIAL IM PRN (16:39)
[2023-10-04] MEDS ORDERED: BISMUTH SUBSALICYLATE 524 MG/30 ML PO PRN (16:39)
[2023-10-04] MEDS ORDERED: IBUPROFEN 400 MG TABLET (FP) PO PRN (16:39)
[2023-10-04] MEDS ORDERED: chlordiazePOXIDE HCL 25 MG CAPSULE PO PRN (16:39)
[2023-10-04] MEDS ORDERED: POLYETHYLENE GLYCOL (HEALTHYLAX) 3350 17 GM PACKET PO PRN (16:39)
[2023-10-04] MEDS ORDERED: ONDANSETRON *ODT* 4 MG TABLET SL PRN (16:39)
[2023-10-04] MEDS ORDERED: guaiFENesin 600 MG TABLET.ER (FP) PO PRN (16:39)
[2023-10-04] MEDS ORDERED: BENZOCAINE/MENTHOL (CHLORASEPTIC ) LOZENGE MM PRN (16:39)
[2023-10-04] MEDS ORDERED: LOPERAMIDE HCL 2 MG CAPSULE PO PRN (16:39)
[2023-10-04] MEDS ORDERED: MAG HYDROX/AL HYDROX/SIMETH 30 ML UNIT-DOSE CUP PO PRN (16:39)
[2023-10-04] MEDS ORDERED: DICYCLOMINE HCL 10 MG CAPSULE PO PRN (16:39)
[2023-10-04] MEDS ORDERED: NALOXONE HCL (KLOXXADO) 8 MG SPRAY NS PRN (16:39)
[2023-10-04] MEDS: IBUPROFEN 600 MG TABLET (FP) PO PRN (18:30)
[2023-10-04] MEDS: MELATONIN 5 MG TABLETS PO SCH (22:25)
[2023-10-04] MEDS: THIAMINE 100 MG TABLET PO SCH (22:25)
[2023-10-04] MEDS: ATORVASTATIN CA 40 MG TABLET (FP) PO SCH (22:25)
[2023-10-04] MEDS: chlordiazePOXIDE HCL 25 MG CAPSULE PO SCH (22:26)
[2023-10-04] MEDS: METHOCARBAMOL 500 MG TABLET PO PRN (22:27)
[2023-10-05] MEDS: PRENATAL VITAMINS W/ FOLIC ACID TABLET (FP) PO SCH (10:47)
[2023-10-05] MEDS: LOSARTAN POTASSIUM 50 MG TABLET PO SCH (10:49)
[2023-10-05 11:51] LABS: CHLORIDE 99 mmol/L (98-107); POTASSIUM 3.1 mmol/L (3.5-5.1); SODIUM 133 mmol/L (136-145)
[2023-10-05 11:52] LABS: HEMOGLOBIN 13.1 GM/dL (11.7-16.9); MCH 29.7 pg (25.7-33.7); MCHC 34.5 g/dl (32.0-35.9); MEAN CELL VOLUME 86.1 fl (80-96); PLATELET COUNT 269 10^3/uL (134-434); RBC 4.42 M/mm3 (4.00-5.60); RDW 15.1 % (11.9-15.9); WHITE BLOOD COUNT 7.8 K/mm3 (4.0-10.0)
[2023-10-05 11:54] LABS: ALBUMIN 3.8 g/dl (3.4-5.0); ANION GAP 7 mmol/L (4-13); CALCIUM 8.5 mg/dL (8.5-10.1); CO2 27 mmol/L (21-32); GLUCOSE,RANDOM 127 mg/dL (74-106)
[2023-10-05 11:57] LABS: CREATININE 5.4 mg/dL (0.55-1.3)
[2023-10-05 11:58] LABS: SGOT/AST 45 U/L (15-37); SGPT/ALT 64 U/L (13-61)
[2023-10-05 11:59] LABS: TOT PROT 6.8 g/dl (6.4-8.2)
[2023-10-05 12:00] LABS: ALK PHOS 82 U/L (45-117)
[2023-10-05] MEDS: ACETAMINOPHEN 325 MG TABLET (FP) PO PRN (17:44)
[2023-10-06] MEDS: chlordiazePOXIDE HCL 25 MG CAPSULE PO SCH (05:15)
[2023-10-06] MEDS: POTASSIUM CHLORIDE ORAL LIQUID 20 MEQ/15 ML PO SCH (22:16)
[2023-10-07] MEDS ORDERED: chlordiazePOXIDE HCL 10 MG CAPSULE PO PRN
[2023-10-07] MEDS: chlordiazePOXIDE HCL 10 MG CAPSULE PO SCH (06:03)
[2023-10-07] MEDS: MAGNESIUM HYDROX 2400MG/30ML ORAL SUSPENSION 30 ML CUP PO PRN (17:18)
[2023-10-07] MEDS: hydrOXYzine PAMOATE 25 MG CAPSULE (FP) PO PRN (23:03)
[2023-10-08] MEDS: chlordiazePOXIDE HCL 10 MG CAPSULE PO SCH (05:55)
[2023-10-08 12:35] LABS: POTASSIUM 3.5 mmol/L (3.5-5.1)
[2023-10-08 12:40] LABS: ALBUMIN 3.1 g/dl (3.4-5.0); CALCIUM 8.6 mg/dL (8.5-10.1)
[2023-10-08 12:44] LABS: BLOOD UREA NITROGEN 21.4 mg/dL (7-18); CREATININE 1.2 mg/dL (0.55-1.3); PHOSPHOROUS 2.4 mg/dL (2.5-4.9)
[2023-10-09] MEDS: chlordiazePOXIDE HCL 10 MG CAPSULE PO ONE (05:18)
[2023-10-10 06:28] VITALS: RESP 18
[2023-10-10 08:49] VITALS: BP 149/86; PULSE 73; TEMP 97.1
== END 2023-10-10 11:50 | disposition other institution (70) | DRG 774 ==
LOC: YASAS 13:23 → Y6N 16:57
PROVIDERS: ADMIT Allergy & Immunology; ATTEND Surgery
PROC: HZ2ZZZZ Detoxification Services for Substance Abuse Treatment (ICD-10-PCS; principal; 2023-10-04)
DX: F10.230 Alcohol dependence with withdrawal, uncomplicated (principal); F14.20 Cocaine dependence, uncomplicated; F17.210 Nicotine dependence, cigarettes, uncomplicated; E87.6 Hypokalemia; E78.2 Mixed hyperlipidemia; I10 Essential (primary) hypertension; R76.8 Other specified abnormal immunological findings in serum; Z86.19 Personal history of other infectious and parasitic diseases; Z59.02 Unsheltered homelessness
CPT/HCPCS: 36415; 80053; 80069; 80305; 80307; 84132; 85027; 86593; 86780; 93005; 93010

== ENCOUNTER 2023-11-03 11:31 | Inpatient (IN) | payer BC ==
[2023-11-03 12:21] VITALS: BMI 31.3
[2023-11-03] MEDS ORDERED: DICYCLOMINE HCL 10 MG CAPSULE PO PRN (12:30)
[2023-11-03] MEDS ORDERED: BENZONATATE 200 MG CAPSULE PO PRN (12:30)
[2023-11-03] MEDS ORDERED: ACETAMINOPHEN 325 MG TABLET (FP) PO PRN (12:30)
[2023-11-03] MEDS ORDERED: IBUPROFEN 400 MG TABLET (FP) PO PRN (12:30)
[2023-11-03] MEDS ORDERED: BISMUTH SUBSALICYLATE 262 MG/15 ML BTL PO PRN (12:30)
[2023-11-03] MEDS ORDERED: MAG HYDROX/AL HYDROX/SIMETH 30 ML UNIT-DOSE CUP PO PRN (12:30)
[2023-11-03] MEDS ORDERED: MAGNESIUM HYDROX 2400MG/30ML ORAL SUSPENSION 30 ML CUP PO PRN (12:30)
[2023-11-03] MEDS ORDERED: NALOXONE HCL (KLOXXADO) 8 MG SPRAY NS PRN (12:30)
[2023-11-03] MEDS ORDERED: LOPERAMIDE HCL 2 MG CAPSULE PO PRN (12:30)
[2023-11-03] MEDS ORDERED: guaiFENesin 600 MG TABLET.ER (FP) PO PRN (12:30)
[2023-11-03] MEDS ORDERED: BENZOCAINE/MENTHOL (CHLORASEPTIC ) LOZENGE MM PRN (12:30)
[2023-11-03] MEDS ORDERED: hydrOXYzine PAMOATE 25 MG CAPSULE (FP) PO PRN (12:30)
[2023-11-03] MEDS ORDERED: ONDANSETRON *ODT* 4 MG TABLET SL PRN (12:30)
[2023-11-03] MEDS ORDERED: METHOCARBAMOL 500 MG TABLET PO PRN (12:30)
[2023-11-03] MEDS ORDERED: NALOXONE HCL 0.4 MG/ML VIAL IM PRN (12:30)
[2023-11-03] MEDS ORDERED: POLYETHYLENE GLYCOL (HEALTHYLAX) 3350 17 GM PACKET PO PRN (12:30)
[2023-11-03] MEDS: LOSARTAN POTASSIUM 50 MG TABLET PO SCH (13:21)
[2023-11-03] MEDS: chlordiazePOXIDE HCL 25 MG CAPSULE PO PRN (13:21)
[2023-11-03] MEDS: amLODIPine BESYLATE 10 MG TABLET (FP) PO SCH (13:21)
[2023-11-03] MEDS: chlordiazePOXIDE HCL 25 MG CAPSULE PO SCH (17:40)
[2023-11-03] MEDS: ATORVASTATIN CA 40 MG TABLET (FP) PO SCH (23:07)
[2023-11-03] MEDS: THIAMINE 100 MG TABLET PO SCH (23:07)
[2023-11-03] MEDS: MELATONIN 5 MG TABLETS PO SCH (23:07)
[2023-11-04] MEDS: PRENATAL VITAMINS W/ FOLIC ACID TABLET (FP) PO SCH (10:05)
[2023-11-04 11:57] LABS: HEMOGLOBIN 11.7 GM/dL (11.7-16.9); MCH 30.4 pg (25.7-33.7); MCHC 34.5 g/dl (32.0-35.9); MEAN CELL VOLUME 88.1 fl (80-96); MEAN PLT VOLUME 7.3 fl (7.5-11.1); PLATELET COUNT 328 10^3/uL (134-434); RBC 3.86 M/mm3 (4.00-5.60); RDW 14.4 % (11.9-15.9); WHITE BLOOD COUNT 6.6 K/mm3 (4.0-10.0)
[2023-11-04 12:03] LABS: POTASSIUM 3.3 mmol/L (3.5-5.1)
[2023-11-04 12:15] LABS: ALBUMIN 3.3 g/dl (3.4-5.0); BLOOD UREA NITROGEN 34.2 mg/dL (7-18); CALCIUM 8.4 mg/dL (8.5-10.1)
[2023-11-04 12:17] LABS: CREATININE 1.6 mg/dL (0.55-1.3)
[2023-11-04 12:18] LABS: TOT PROT 6.7 g/dl (6.4-8.2)
[2023-11-04 12:19] LABS: BILIRUBIN,TOTAL 0.7 mg/dL (0.2-1)
[2023-11-04] MEDS: POTASSIUM CHLORIDE ORAL LIQUID 20 MEQ/15 ML PO ONE (15:05)
[2023-11-04] MEDS: LACTULOSE 20 GM/30 ML UDC (FOR ORAL USE ONLY) PO ONE (15:05)
[2023-11-04] MEDS: IBUPROFEN 600 MG TABLET (FP) PO PRN (15:07)
[2023-11-04] MEDS: LACTULOSE 20 GM/30 ML UDC (FOR ORAL USE ONLY) PO SCH (17:30)
[2023-11-04] MEDS: POTASSIUM CHLORIDE ORAL LIQUID 20 MEQ/15 ML PO SCH (23:02)
[2023-11-05] MEDS: chlordiazePOXIDE HCL 25 MG CAPSULE PO SCH (06:01)
[2023-11-05 11:27] LABS: POTASSIUM 3.3 mmol/L (3.5-5.1)
[2023-11-05 11:32] LABS: BLOOD UREA NITROGEN 19.4 mg/dL (7-18); CALCIUM 8.5 mg/dL (8.5-10.1)
[2023-11-05 11:35] LABS: CREATININE 1.1 mg/dL (0.55-1.3)
[2023-11-06] MEDS ORDERED: chlordiazePOXIDE HCL 10 MG CAPSULE PO PRN
[2023-11-06] MEDS: chlordiazePOXIDE HCL 10 MG CAPSULE PO SCH (05:57)
[2023-11-07] MEDS: chlordiazePOXIDE HCL 10 MG CAPSULE PO SCH (06:11)
[2023-11-07] MEDS: NALTREXONE HCL 50 MG TABLET PO SCH (10:23)
[2023-11-08] MEDS: chlordiazePOXIDE HCL 10 MG CAPSULE PO ONE (06:16)
[2023-11-08 06:44] VITALS: BP 148/87; PULSE 66; RESP 17; TEMP 97.8
== END 2023-11-08 08:20 | disposition home or self-care (01) | DRG 774 ==
LOC: YASAS 11:31 → Y6N 12:37
PROVIDERS: ADMIT Allergy & Immunology; ATTEND Surgery
PROC: HZ2ZZZZ Detoxification Services for Substance Abuse Treatment (ICD-10-PCS; principal; 2023-11-03)
DX: F10.230 Alcohol dependence with withdrawal, uncomplicated (principal); F14.20 Cocaine dependence, uncomplicated; F17.210 Nicotine dependence, cigarettes, uncomplicated; E87.6 Hypokalemia; E78.5 Hyperlipidemia, unspecified; R79.89 Other specified abnormal findings of blood chemistry; R01.1 Cardiac murmur, unspecified; Z86.19 Personal history of other infectious and parasitic diseases
CPT/HCPCS: 36415; 80048; 80053; 80305; 80307; 82140; 83036; 85027; 86593; 86780

== ENCOUNTER 2023-12-05 16:13 | Inpatient (IN) | payer BC ==
[2023-12-05 17:55] VITALS: BMI 30.7
[2023-12-05] MEDS ORDERED: BENZONATATE 200 MG CAPSULE PO PRN (20:17)
[2023-12-05] MEDS ORDERED: MAGNESIUM HYDROX 2400MG/30ML ORAL SUSPENSION 30 ML CUP PO PRN (20:17)
[2023-12-05] MEDS ORDERED: POLYETHYLENE GLYCOL (HEALTHYLAX) 3350 17 GM PACKET PO PRN (20:17)
[2023-12-05] MEDS ORDERED: ACETAMINOPHEN 325 MG TABLET (FP) PO PRN (20:17)
[2023-12-05] MEDS ORDERED: LOPERAMIDE HCL 2 MG CAPSULE PO PRN (20:17)
[2023-12-05] MEDS ORDERED: BENZOCAINE/MENTHOL (CHLORASEPTIC ) LOZENGE MM PRN (20:17)
[2023-12-05] MEDS ORDERED: guaiFENesin 600 MG TABLET.ER (FP) PO PRN (20:17)
[2023-12-05] MEDS ORDERED: MAG HYDROX/AL HYDROX/SIMETH 30 ML UNIT-DOSE CUP PO PRN (20:17)
[2023-12-05] MEDS ORDERED: hydrOXYzine PAMOATE 25 MG CAPSULE (FP) PO PRN (20:17)
[2023-12-05] MEDS ORDERED: cloNIDine HCL 0.1 MG TABLET ONE (20:39)
[2023-12-05] MEDS: cloNIDine HCL 0.1 MG TABLET PO ONE ×2 (20:42→23:06)
[2023-12-05] MEDS: THIAMINE 100 MG TABLET PO SCH (21:49)
[2023-12-05] MEDS: ATORVASTATIN CA 40 MG TABLET (FP) PO SCH (21:49)
[2023-12-05] MEDS: MELATONIN 5 MG TABLETS PO SCH (21:49)
[2023-12-05] MEDS: METHOCARBAMOL 500 MG TABLET PO PRN (22:32)
[2023-12-05] MEDS: ACETAMINOPHEN 325 MG TABLET (FP) PO PRN (22:32)
[2023-12-06] MEDS: ASPIRIN 81 MG CHEWABLE TABLETS PO ONE (01:49)
[2023-12-06] MEDS: PRENATAL VITAMINS W/ FOLIC ACID TABLET (FP) PO SCH (11:36)
[2023-12-06] MEDS: amLODIPine BESYLATE 10 MG TABLET (FP) PO SCH (11:36)
[2023-12-06] MEDS: LIDOCAINE 5% TOPICAL PATCH TP SCH (11:36)
[2023-12-06] MEDS ORDERED: PATIENT'S OWN MEDICATION (NON-FORMULARY) (Losartan Potassium [Cozaar] 100 MG Tablet) PO SCH (15:00)
[2023-12-06] MEDS: amLODIPine BESYLATE 10 MG TABLET (FP) PO ONE (15:03)
[2023-12-06] MEDS: LOSARTAN POTASSIUM 50 MG TABLET PO SCH (15:03)
[2023-12-06] MEDS: LISINOPRIL 10 MG TABLET PO ONE (17:52)
[2023-12-06] MEDS: LIDOCAINE PATCH REMOVAL MC SCH (22:37)
[2023-12-07] MEDS: ASPIRIN COATED 81 MG TABLET.EC PO SCH (10:33)
[2023-12-07] MEDS: LISINOPRIL 10 MG TABLET PO SCH (15:23)
[2023-12-08] MEDS: POTASSIUM CHLORIDE TABS 20 MEQ TABLET.ER (FP) PO SCH (10:00)
[2023-12-08] MEDS: MAGNESIUM OXIDE 400 MG TABLET (FP) PO SCH (13:09)
[2023-12-08] MEDS: METHYL SALICYLATE/MENTHOL OINT 30 GM TUBE TP SCH (13:29)
[2023-12-09 14:11] LABS: BASO % 1.1 % (0-2.0); EOS % 2.5 % (0-4.5); HEMATOCRIT 35.8 % (35.4-49); HEMOGLOBIN 12.2 GM/dL (11.7-16.9); LYMPH % 32.5 % (8-40); MCH 29.4 pg (25.7-33.7); MEAN CELL VOLUME 86.3 fl (80-96); MEAN PLT VOLUME 8.1 fl (7.5-11.1); MONO % 10.8 % (3.8-10.2); NEUT % 53.1 % (42.8-82.8); PLATELET COUNT 315 10^3/uL (134-434); RBC 4.15 M/mm3 (4.00-5.60); RDW 15.7 % (11.9-15.9); WHITE BLOOD COUNT 5.9 K/mm3 (4.0-10.0)
[2023-12-09 14:16] LABS: POTASSIUM 3.8 mmol/L (3.5-5.1)
[2023-12-09 14:22] LABS: CALCIUM 8.8 mg/dL (8.5-10.1)
[2023-12-09 14:23] LABS: ALBUMIN 3.5 g/dl (3.4-5.0); BLOOD UREA NITROGEN 14.7 mg/dL (7-18)
[2023-12-09 14:26] LABS: BILIRUBIN,TOTAL 0.5 mg/dL (0.2-1)
[2023-12-09 14:28] LABS: TOT PROT 6.7 g/dl (6.4-8.2)
[2023-12-09 14:34] LABS: CREATININE 1.1 mg/dL (0.55-1.3)
[2023-12-09] MEDS: MELATONIN 5 MG TABLETS PO SCH (21:57)
[2023-12-10] MEDS: LACTULOSE 20 GM/30 ML UDC (FOR ORAL USE ONLY) PO ONE (09:46)
[2023-12-10] MEDS: LACTULOSE 20 GM/30 ML UDC (FOR ORAL USE ONLY) PO SCH (14:35)
[2023-12-19 07:00] VITALS: TEMP 97.7
[2023-12-19 09:43] VITALS: BP 111/67; PULSE 55; RESP 16
== END 2023-12-19 09:20 | disposition home or self-care (01) | DRG 772 ==
LOC: YASAS 16:13 → Y3E 21:04 → Y3W 12-13 08:09
PROVIDERS: ADMIT Allergy & Immunology; ATTEND Psychiatry & Neurology Pain Medicine
PROC: HZ42ZZZ Group Counseling for Substance Abuse Treatment, Cognitive-Behavioral (ICD-10-PCS; principal; 2023-12-05)
DX: F14.20 Cocaine dependence, uncomplicated (principal); F10.20 Alcohol dependence, uncomplicated; F17.210 Nicotine dependence, cigarettes, uncomplicated; E72.20 Disorder of urea cycle metabolism, unspecified; E78.5 Hyperlipidemia, unspecified; I10 Essential (primary) hypertension; G47.00 Insomnia, unspecified; M25.562 Pain in left knee; G89.29 Other chronic pain; R94.31 Abnormal electrocardiogram [ECG] [EKG]; R06.02 Shortness of breath; R07.9 Chest pain, unspecified; Z86.19 Personal history of other infectious and parasitic diseases; Z59.00 Homelessness unspecified
CPT/HCPCS: 36415; 80053; 80305; 82140; 83735; 85025; 93005; 93010

== ENCOUNTER 2024-01-27 10:59 | Inpatient (IN) | payer BC ==
[2024-01-27 12:05] VITALS: BMI 29.9
[2024-01-27] MEDS ORDERED: NICOTINE POLACRILEX 2 MG LOZENGE BC PRN (12:20)
[2024-01-27] MEDS ORDERED: guaiFENesin 600 MG TABLET.ER (FP) PO PRN (12:20)
[2024-01-27] MEDS ORDERED: LOPERAMIDE HCL 2 MG CAPSULE PO PRN (12:20)
[2024-01-27] MEDS ORDERED: MAG HYDROX/AL HYDROX/SIMETH 30 ML UNIT-DOSE CUP PO PRN (12:20)
[2024-01-27] MEDS ORDERED: IBUPROFEN 400 MG TABLET (FP) PO PRN (12:20)
[2024-01-27] MEDS ORDERED: ACETAMINOPHEN 325 MG TABLET (FP) PO PRN (12:20)
[2024-01-27] MEDS ORDERED: BENZOCAINE/MENTHOL (CHLORASEPTIC ) LOZENGE MM PRN (12:20)
[2024-01-27] MEDS ORDERED: NICOTINE POLACRILEX 2 MG GUM BUC PRN (12:20)
[2024-01-27] MEDS ORDERED: MAGNESIUM HYDROX 2400MG/30ML ORAL SUSPENSION 30 ML CUP PO PRN (12:20)
[2024-01-27] MEDS ORDERED: BENZONATATE 200 MG CAPSULE PO PRN (12:20)
[2024-01-27] MEDS ORDERED: ASPIRIN 81 MG CHEWABLE TABLETS ONE (13:32)
[2024-01-27] MEDS: ASPIRIN COATED 81 MG TABLET.EC PO SCH (13:33)
[2024-01-27] MEDS: MELATONIN 5 MG TABLETS PO SCH (22:32)
[2024-01-27] MEDS: ATORVASTATIN CA 40 MG TABLET (FP) PO SCH (22:32)
[2024-01-27] MEDS: THIAMINE 100 MG TABLET PO SCH (22:32)
[2024-01-28] MEDS: amLODIPine BESYLATE 10 MG TABLET (FP) PO SCH (10:53)
[2024-01-28] MEDS: PRENATAL VITAMINS W/ FOLIC ACID TABLET (FP) PO SCH (10:53)
[2024-01-28] MEDS: IBUPROFEN 600 MG TABLET (FP) PO PRN (22:03)
[2024-01-30] MEDS: TUBERCULIN PPD 5 TU/0.1ML VIAL ID ONE (12:08)
[2024-02-03 12:44] LABS: URINE APPEARANCE CLEAR; URINE BILIRUBIN NEGATIVE (NEGATIVE); URINE COLOR YELLOW; URINE GLUCOSE (UA) NEGATIVE (NEGATIVE); URINE KETONE NEGATIVE (NEGATIVE); URINE LEUK ESTERASE NEGATIVE (NEGATIVE); URINE NITRITE NEGATIVE (NEGATIVE); URINE PROTEIN NEGATIVE (NEGATIVE); URINE UROBILINOGEN 0.2 mg/dL (0.2-1.0)
[2024-02-03] MEDS: METHYL SALICYLATE/MENTHOL 30 GM TUBE TP SCH (13:28)
[2024-02-03] MEDS: BACLOFEN 10 MG TABLET (FP) PO SCH (21:10)
[2024-02-04 11:37] LABS: HEMATOCRIT 37.9 % (35.4-49); HEMOGLOBIN 12.8 GM/dL (11.7-16.9); MCH 28.8 pg (25.7-33.7); MCHC 33.8 g/dl (32.0-35.9); MEAN CELL VOLUME 85.1 fl (80-96); MEAN PLT VOLUME 8.1 fl (7.5-11.1); PLATELET COUNT 316 10^3/uL (134-434); RBC 4.45 M/mm3 (4.00-5.60); RDW 15.3 % (11.9-15.9); WHITE BLOOD COUNT 5.3 K/mm3 (4.0-10.0)
[2024-02-04 11:57] LABS: BLOOD UREA NITROGEN 15.5 mg/dL (7-18); CALCIUM 9.5 mg/dL (8.5-10.1)
[2024-02-04 12:00] LABS: CREATININE 1.1 mg/dL (0.55-1.3)
[2024-02-04 12:02] LABS: BILIRUBIN,TOTAL 0.6 mg/dL (0.2-1); TOT PROT 7.5 g/dl (6.4-8.2)
[2024-02-07] MEDS: POLYETHYLENE GLYCOL (HEALTHYLAX) 3350 17 GM PACKET PO PRN (16:23)
[2024-02-08 08:57] VITALS: RESP 18
[2024-02-08] MEDS: ACAMPROSATE CALCIUM 333 MG TABLET.DR PO SCH (14:07)
[2024-02-09 06:09] VITALS: TEMP 97.5
[2024-02-09 09:11] VITALS: BP 148/67; PULSE 60
== END 2024-02-09 09:34 | disposition home or self-care (01) | DRG 772 ==
LOC: YASAS 10:59 → Y3NR 13:34 → Y3W 01-30 11:36
PROVIDERS: ADMIT Psychiatry & Neurology Pain Medicine; ATTEND Psychiatry & Neurology Pain Medicine
PROC: HZ42ZZZ Group Counseling for Substance Abuse Treatment, Cognitive-Behavioral (ICD-10-PCS; principal; 2024-01-27)
DX: F14.20 Cocaine dependence, uncomplicated (principal); F10.20 Alcohol dependence, uncomplicated; F17.210 Nicotine dependence, cigarettes, uncomplicated; E78.5 Hyperlipidemia, unspecified; I10 Essential (primary) hypertension; G47.00 Insomnia, unspecified; R79.89 Other specified abnormal findings of blood chemistry; Z86.19 Personal history of other infectious and parasitic diseases; Z59.00 Homelessness unspecified
CPT/HCPCS: 36415; 80053; 80305; 80307; 81003; 85027; 87811; 93005; 93010; J0475

== ENCOUNTER 2024-08-09 18:48 | Inpatient (IN) | payer BC ==
[2024-08-09 19:20] VITALS: BMI 31.8
[2024-08-09] MEDS ORDERED: POLYETHYLENE GLYCOL (HEALTHYLAX) 3350 17 GM PACKET PO PRN (19:55)
[2024-08-09] MEDS ORDERED: ACETAMINOPHEN 325 MG TABLET (FP) PO PRN (19:55)
[2024-08-09] MEDS ORDERED: NALOXONE (NARCAN) HCL 4 MG/0.1 ML SPRAY NS PRN (19:55)
[2024-08-09] MEDS ORDERED: guaiFENesin 600 MG TABLET.ER (FP) PO PRN (19:55)
[2024-08-09] MEDS ORDERED: MAG HYDROX/AL HYDROX/SIMETH 30 ML UNIT-DOSE CUP PO PRN (19:55)
[2024-08-09] MEDS ORDERED: IBUPROFEN 400 MG TABLET (FP) PO PRN (19:55)
[2024-08-09] MEDS ORDERED: BENZONATATE 200 MG CAPSULE PO PRN (19:55)
[2024-08-09] MEDS ORDERED: NICOTINE POLACRILEX 2 MG GUM BUC PRN (19:55)
[2024-08-09] MEDS ORDERED: MAGNESIUM HYDROX 2400MG/30ML ORAL SUSPENSION 30 ML CUP PO PRN (19:55)
[2024-08-09] MEDS ORDERED: BENZOCAINE/MENTHOL (CHLORASEPTIC ) LOZENGE MM PRN (19:55)
[2024-08-09] MEDS ORDERED: LOPERAMIDE HCL 2 MG CAPSULE PO PRN (19:55)
[2024-08-09] MEDS ORDERED: NICOTINE POLACRILEX 2 MG LOZENGE BC PRN (19:55)
[2024-08-09] MEDS ORDERED: IBUPROFEN 600 MG TABLET (FP) PO PRN (19:55)
[2024-08-09] MEDS: THIAMINE 100 MG TABLET PO SCH (22:21)
[2024-08-09] MEDS: MELATONIN 5 MG TABLETS PO SCH (22:22)
[2024-08-10] MEDS: PRENATAL VITAMINS W/ FOLIC ACID TABLET (FP) PO SCH (10:50)
[2024-08-10 11:06] LABS: HEMATOCRIT 36.7 % (35.4-49); HEMOGLOBIN 12.3 GM/dL (11.7-16.9); MCH 28.5 pg (25.7-33.7); MCHC 33.5 g/dl (32.0-35.9); MEAN CELL VOLUME 85.1 fl (80-96); MEAN PLT VOLUME 7.9 fl (7.5-11.1); PLATELET COUNT 228 10^3/uL (134-434); RBC 4.31 M/mm3 (4.00-5.60); RDW 15.5 % (11.9-15.9); WHITE BLOOD COUNT 6.8 K/mm3 (4.0-10.0)
[2024-08-10 11:22] LABS: CHLORIDE 103 mmol/L (98-107); SODIUM 138 mmol/L (136-145)
[2024-08-10 11:33] LABS: CALCIUM 8.8 mg/dL (8.5-10.1)
[2024-08-10 11:34] LABS: ALBUMIN 3.3 g/dl (3.4-5.0); ANION GAP 8 mmol/L (4-13); BLOOD UREA NITROGEN 23.3 mg/dL (7-18); CO2 26 mmol/L (21-32); GLUCOSE,RANDOM 132 mg/dL (74-106)
[2024-08-10 11:37] LABS: CREATININE 1.3 mg/dL (0.55-1.3); SGOT/AST 28 U/L (15-37); SGPT/ALT 27 U/L (13-61)
[2024-08-10 11:39] LABS: TOT PROT 6.7 g/dl (6.4-8.2)
[2024-08-10 11:40] LABS: ALK PHOS 73 U/L (45-117)
[2024-08-10] MEDS: amLODIPine BESYLATE 10 MG TABLET (FP) PO SCH (15:20)
[2024-08-10] MEDS: ASPIRIN COATED 81 MG TABLET.EC PO SCH (15:20)
[2024-08-10] MEDS: ACAMPROSATE CALCIUM 333 MG TABLET.DR PO SCH (21:07)
[2024-08-10] MEDS: ATORVASTATIN CA 40 MG TABLET (FP) PO SCH (21:08)
[2024-08-10] MEDS: BACLOFEN 10 MG TABLET (FP) PO SCH (21:08)
[2024-08-12 20:36] LABS: EPI CELLS 1 /uL (0-25.1); HYALINE CASTS 0 /uL (0-3.1); URINE APPEARANCE CLEAR; URINE BACTERIA 2 /uL (0-1359); URINE BILIRUBIN NEGATIVE (NEGATIVE); URINE COLOR YELLOW; URINE GLUCOSE (UA) NEGATIVE (NEGATIVE); URINE KETONE NEGATIVE (NEGATIVE); URINE LEUK ESTERASE NEGATIVE (NEGATIVE); URINE NITRITE NEGATIVE (NEGATIVE); URINE PROTEIN NEGATIVE (NEGATIVE); URINE RBC 41 /uL (0-23.9); URINE WBC 4 /uL (0-25.8)
[2024-08-13] MEDS ORDERED: LISINOPRIL 10 MG TABLET PO SCH (10:00)
[2024-08-13] MEDS: LISINOPRIL 20 MG TABLET PO SCH (10:22)
[2024-08-14] MEDS: POTASSIUM CHLORIDE TABS 20 MEQ TABLET.ER (FP) PO SCH (13:00)
[2024-08-16] MEDS: amLODIPine BESYLATE 10 MG TABLET (FP) PO SCH (09:29)
[2024-08-16] MEDS: POTASSIUM CHLORIDE TABS 20 MEQ TABLET.ER (FP) PO SCH (11:00)
[2024-08-16] MEDS: METHYL SALICYLATE/MENTHOL 30 GM TUBE TP SCH (21:36)
[2024-08-22] MEDS: LOSARTAN POTASSIUM 25 MG TABLET PO ONE (15:00)
[2024-08-23] MEDS: LOSARTAN POTASSIUM 50 MG TABLET PO SCH (10:43)
[2024-08-30 09:10] VITALS: BP 159/89; PULSE 68; RESP 18; TEMP 98.2
== END 2024-08-30 09:23 | disposition home or self-care (01) | DRG 772 ==
LOC: YASAS 18:48 → Y3NR 20:56 → Y3E 08-10 12:07
PROVIDERS: ADMIT Psychiatry & Neurology Pain Medicine; ATTEND Psychiatry & Neurology Pain Medicine
PROC: HZ42ZZZ Group Counseling for Substance Abuse Treatment, Cognitive-Behavioral (ICD-10-PCS; principal; 2024-08-09)
DX: F14.20 Cocaine dependence, uncomplicated (principal); F10.20 Alcohol dependence, uncomplicated; F17.210 Nicotine dependence, cigarettes, uncomplicated; E87.5 Hyperkalemia; E78.5 Hyperlipidemia, unspecified; G47.00 Insomnia, unspecified; I25.10 Atherosclerotic heart disease of native coronary artery without angina pectoris; I10 Essential (primary) hypertension; M25.562 Pain in left knee; G89.29 Other chronic pain; Z99.89 Dependence on other enabling machines and devices
CPT/HCPCS: 36415; 80053; 80305; 80307; 81003; 84132; 85027; 86593; 86780; 87811; 93005; 93010; J0475